=== PATIENT | female | born 1965 | race Caucasian/White ===

== ENCOUNTER 2017-04-22 09:43 | Day surgery (SDC) | payer BC ==
--- NOTE | 2017-04-20 17:04 | HP ---
CC: Johnathan Jin NP, [place] * PREOPERATIVE HISTORY AND PHYSICAL: DATE OF ADMISSION: 04/22/17 This patient is scheduled for same-day surgery admission by Dr. Boateng on , 04/22/17. DATE OF PREOPERATIVE HISTORY AND PHYSICAL EXAMINATION: 04/20/17. ATTENDING SURGEON: Dr. Arthur Boateng * (dictated by Steph Cat NP). CHIEF COMPLAINT: Left breast mass. HISTORY OF PRESENT ILLNESS: The patient is a 51-year-old female referred to Dr. Boateng from nurse practitioner, Johnathan Jin, in [place] for evaluation of a mass in the left breast. This was found on a routine physical exam, the patient herself had not noticed it. She does have a significant family history, her mother of breast cancer at age 42. Her mother's sister at age 41 of some type of unknown cancer. The patient has no sisters. The mother had another sister who was never diagnosed with breast cancer. The patient's maternal grandmother never had breast cancer. There was no known ovarian cancer in the family. The patient is 12, para 4, miscarriage 6; she had her last menstrual period in late March, but states that it was just one day of spotting, but typically her periods have continued to be regular; age of menarche was 13. She recently underwent bilateral mammogram on 04/14/17, which revealed a large left breast mass; she also underwent left breast ultrasound, which again revealed a large solid mass at the 3 to 4 o'clock position in the left breast; Dr. Boateng performed a fine needle aspiration of the left breast on 03/16/17, which revealed benign fibroadenoma; Dr. Boateng reviewed all of the diagnostic findings with the patient and the various options of followup of the left breast mass and the patient has opted for excision of the left breast mass as a same-day surgery procedure. Dr. Boateng discussed the nature of the surgical procedure, the relevant risks and benefits and today I reviewed the postoperative care and recovery. She has had an opportunity to ask questions and stated that she understands the information and is satisfied with the answers given to her questions. She will sign surgical consent on the day of surgery. PAST MEDICAL HISTORY: Significant for type 2 diabetes, hypertension, and asthma. She is followed for primary care by nurse practitioner, Johnathan Jin. PAST SURGICAL HISTORY: Arthroscopy of both knees done in [place], [place]; tubal ligation and then reversal of the tubal ligation 18 years ago. MEDICATIONS: 1. Advair Diskus 250-50 mcg per dose 1 puff twice daily. 2. Paxil 30 mg p.o. daily. 3. Lisinopril 10 mg p.o. daily. 4. Metformin 500 mg p.o. b.i.d. and she will hold the metformin for 24 hours preoperatively. 5. Benzonatate 200 mg 1 tablet t.i.d. p.r.n. 6. Ventolin inhaler 2 puffs p.r.n. 7. Xanax 1 mg p.o. as needed. 8. Albuterol sulfate 2.5 mg per 3 mL 1 vial via nebulizer as needed. ALLERGIES: No known drug allergies. FAMILY HISTORY: As described in history of present illness, mother of breast cancer at age 42. No known ovarian cancer in the family. No anesthesia complications, bleeding tendencies, or clotting disorders in the family. SOCIAL HISTORY: She is and her accompanied her to the visit today. She smokes 1 pack of cigarettes daily, off and on for the past 30 years and has no plan to quit. She denies the use of alcohol or other substances. REVIEW OF SYSTEMS: Constitutional: No fevers or chills. No excessive fatigue or weight loss. Endocrine: Type 2 diabetes. She does not routinely check her fingerstick blood sugar at home; no thyroid disease. Hematologic: No easy bruising or bleeding. Breasts: Abnormal left breast mass. Respiratory: No dyspnea on exertion, no cough. No recent flare-ups of asthma. Cardiovascular: No anginal chest pain or palpitations. Gastrointestinal: No nausea, vomiting , diarrhea or constipation, or change in bowel habits. Genitourinary: No dysuria. Musculoskeletal: No back pain; she does have chronic bilateral knee pain. Neurologic: No headache, blurred vision, or areas of focal weakness. General: No previous history of deep vein thrombosis or pulmonary embolism. No previous anesthesia complications. No bleeding tendencies and has never received a blood transfusion. PHYSICAL EXAMINATION GENERAL SURVEY: The patient is a 51-year-old female, well developed, well nourished, in no acute distress. VITAL SIGNS: Height 62 inches, weight 155 pounds, body mass index 28.3. Blood pressure 122/82, pulse 80 and regular, respiratory rate 16, and temperature 98.8 tympanic. HEENT: Benign. NECK: Supple. No cervical lymphadenopathy. No supraclavicular lymphadenopathy. BREASTS: Right breast, no palpable masses. No axillary adenopathy. No nipple discharge. Left breast reveals a solitary mass of approximately 2 cm located at the 4 o'clock position approximately 3 cm from the areola, it is firm and mobile and nontender. No nipple discharge. No left axillary adenopathy. Both nipples are everted. LUNGS: Breath sounds bilaterally clear and equal. HEART: Regular rate and rhythm. No murmurs or rubs appreciated. ABDOMEN: Active bowel sounds. Well-healed lower midline surgical scar. Soft, nondistended. No obvious masses, organomegaly, or evidence of ventral hernia. PELVIC EXAM: Deferred. RECTAL EXAM: Deferred. EXTREMITIES: Warm without edema or skin ulceration. NEUROLOGIC: Alert and oriented x3. Steady gait. SKIN: Warm, dry, and intact. IMPRESSION: Left breast mass. PLAN: Same-day surgery admission to Dr. Boateng's service on , 04/22/17 , for excision of left breast mass. STEPH CAT, RADIOLOGY ADMINISTRATOR [id number]/[facility] #: [id number] MTDD
[~2017-04-22 09:43] MED LIST: Buffered Lidocaine 0.9% SYRIN* 5 ML/SYR SYRINGE INTRADERM ONE; Bupivacaine 0.5% SDV PF* 30 ML VIAL ONE; Ibuprofen TAB* 400 MG PO ONE; Lidocaine 1% MPF wEPI 200,000* 30 ML SDV ONE; Sodium Citrate/Citric Acid* 15 ML UDC PO ONE
[2017-04-22] MEDS ORDERED: Sodium Citrate/Citric Acid* 15 ML UDC ONE (09:45)
[2017-04-22] MEDS ORDERED: Ibuprofen TAB* 400 MG ONE (09:45)
[2017-04-22] MEDS ORDERED: Buffered Lidocaine 0.9% SYRIN* 5 ML/SYR SYRINGE ONE (09:46)
[2017-04-22] MEDS ORDERED: ceFAZolin 2 GM PREMIX (*) 50 ML IVPB ONE (09:46)
[2017-04-22] MEDS ORDERED: Midazolam* 1 MG/ML 5 ML VIAL (5 MG) ONE (10:14)
[2017-04-22] MEDS ORDERED: fentaNYL* 50 MCG/ML 2 ML VIAL (100 MCG VIAL) ONE (10:14)
[2017-04-22 11:36] VITALS: BP 99/66
--- NOTE | 2017-04-22 22:10 | OP ---
CC: [facility] * DATE OF OPERATION: 04/22/17 - SDS DATE OF : 69 SURGEON: Arthur Boateng MD [facility] MANAGER: Roz Suarez NP ANESTHESIOLOGIST: Dr. Buchanan. ANESTHESIA: LMAC. PRE-OP DIAGNOSIS: Left breast mass. POST-OP DIAGNOSIS: Left breast mass. OPERATIVE PROCEDURE: Excision of left breast mass. DESCRIPTION OF PROCEDURE: The patient was supine on the operative table. After adequate intravenous sedation, compression stockings, Nirali Hugger Warmer, and intravenous antibiotics, the left breast were prepped with antiseptic and draped in a sterile fashion. Local infiltrative anesthesia was administered. Approximately 4 to 5 cm incision was created and the mass was between 3 and 4 cm was removed in its entirety with a little margin of tissue around it. It was marked with usual localizing suture and sent in formalin for pathologic evaluation. The incision was made hemostatic with electrocautery. Our sutures were appropriate, irrigated and then closed in layers with 3-0 and 5-0 Vicryl followed by Steri-Strips. She tolerated the procedure well, was awakened, and was brought to Recovery in good condition. No complication. No drains. Pathologic specimen as above. Sponge and instrument counts correct. Estimated blood loss 20 mL. [id number]/[facility] #: [id number] [facility]
== END 2017-04-22 11:57 | disposition home or self-care (01) ==
LOC: OR 09:43
PROVIDERS: ATTEND Surgery
DX: D24.2 Benign neoplasm of left breast (principal); I10 Essential (primary) hypertension; J45.909 Unspecified asthma, uncomplicated; F17.210 Nicotine dependence, cigarettes, uncomplicated; E11.9 Type 2 diabetes mellitus without complications; Z79.84 Long term (current) use of oral hypoglycemic drugs
CPT/HCPCS: 81025; 88307; A9270-GY; J0690; J2001; J2250; J3010